=== PATIENT | female | born 1945 | race Caucasian/White ===

== ENCOUNTER 2020-07-20 16:51 | Inpatient (IN) ==
[2020-07-20] MEDS ORDERED: niCARdipine 25 MG in SODIUM CHLORIDE 0.9% 240 ML IV PRN (17:16)
[2020-07-20] MEDS ORDERED: MAGNESIUM SULFATE / D5W 1 GM/100 ML BAG IV ONE (17:21)
--- NOTE | 2020-07-20 17:25 | Emergency Department Note ---
History of Present Illness General Chief complaint: Stroke/CVA Symptoms Stated complaint: MEMORY LOSS Time Seen by Provider: 07/20/20 17:05 Source: patient, family (), RN notes reviewed and old records reviewed Mode of arrival: ambulatory Limitations: altered mental status History of Present Illness Provider complaint: altered mental status Onset (ago): hour(s) less than 1 Associated symptoms: + denies other symptoms; no chest pain, no diaphoresis, no fever/chills, no headaches, no loss of appetite, no malaise, no nausea/vomiting, no seizure, no shortness of breath and no weakness Treatments prior to arrival: none This is a 74-year-old female that presents to the emergency department over concerns of the patient had an acute change in mental status. The patient was just to the emergency department for a nasal packing for a nosebleed. Upon arrival home the patient could not recall where she was or what they had done all day. The patient's then brought the patient back to the emergency department. Upon arrival to the emergency department the patient is pleasant however does appear confused. Home Medications Home Medications Medication Instructions Recorded Confirmed Type allopurinol 200 mg PO QAM 07/20/20 07/20/20 History aspirin 81 mg PO QAM 07/20/20 07/20/20 History cholecalciferol (vitamin D3) 25 mcg PO QAM 07/20/20 07/20/20 History [Vitamin D3] furosemide 10 mg PO QAM 07/20/20 07/20/20 History levothyroxine 112 mcg PO DAILY 07/20/20 07/20/20 History lisinopril 20 mg PO DAILY 07/20/20 07/20/20 History potassium chloride 10 meq PO QAM PRN 07/20/20 07/20/20 History propranolol 80 mg PO QAM 07/20/20 07/20/20 History simvastatin 10 mg PO HS 07/20/20 07/20/20 History amoxicillin-pot clavulanate 1 tab PO Q12H 4 Days #8 tab 07/22/20 07/20/20 Rx [Augmentin] Allergies Allergy/AdvReac Type Severity Reaction Status Date / Time adivl AdvReac Mild hematuria Uncoded 07/20/20 13:58 Past Med/Surg History Medical History CKD (chronic kidney disease), stage III HLD (hyperlipidemia) HTN (hypertension) Hypothyroidism Prediabetes Surgical History H/O thyroidectomy H/O: hysterectomy Family History Other Ovarian cancer Social History Smoking Status: Never smoker Hx Alcohol Use: No Hx Substance Use: No Preferred Language: Swiss Communication Ability: Effective Beliefs That Will Affect Care: None Current Living Situation: Spouse Other Information That Helps Us Care for You: No Feels Safe at Home: Yes Safety Concerns: Feels Safe At This Time Assistive Devices: Glasses Review of Systems A total of 10 systems reviewed and were otherwise negative Physical Exam Vital Signs Vital Signs - 24 hr 07/20/20 16:57 07/20/20 17:49 07/20/20 17:57 Temperature 36.4 C L Temperature Source Oral Pulse Rate 73 74 80 Pulse Rate from SpO2 Sensor 76 Respiratory Rate 18 20 22 Respiratory Effort / Characteristics Non-Labored Spontaneous Respiratory Depth Normal Respiratory Pattern Regular Blood Pressure 204/109 H 198/83 H 190/112 H Blood Pressure Mean 140 120 135 Blood Pressure Position Sitting Pulse Oximetry 95 96 Oxygen Delivery Method Room Air Sepsis Recent Fever Within 48 Hours No Sepsis New/Unexplained Change in Mental Status N/A Sepsis Action Taken by Nursing No Action Required 07/20/20 18:01 07/20/20 18:11 07/20/20 18:39 Temperature Temperature Source Pulse Rate 73 70 84 Pulse Rate from SpO2 Sensor 76 Respiratory Rate 22 25 H 17 Respiratory Effort / Characteristics Respiratory Depth Respiratory Pattern Blood Pressure 200/92 H 189/88 H 178/113 H Blood Pressure Mean 103 106 125 Blood Pressure Position Pulse Oximetry 95 94 Oxygen Delivery Method Sepsis Recent Fever Within 48 Hours Sepsis New/Unexplained Change in Mental Status Sepsis Action Taken by Nursing 07/20/20 18:41 Temperature Temperature Source Pulse Rate 90 Pulse Rate from SpO2 Sensor 75 Respiratory Rate 18 Respiratory Effort / Characteristics Respiratory Depth Respiratory Pattern Blood Pressure 172/86 H Blood Pressure Mean 128 Blood Pressure Position Pulse Oximetry 94 Oxygen Delivery Method Sepsis Recent Fever Within 48 Hours Sepsis New/Unexplained Change in Mental Status Sepsis Action Taken by Nursing VITAL SIGNS - Vital signs and nursing notes were reviewed. GENERAL - 74-year-old female appearing stated age who is in no acute distress. Confused as to date and where she is SKIN - Without rashes. HEAD - NC/AT. EYES - PERRL with EOMI bilaterally. Sclera anicteric. Palpebral conjunctiva pink and moist with no injection noted. EARS - No deformities of external structures noted on gross examination bilaterally. No pain elicited with palpation of the tragus bilaterally. External auditory canals without discharge or otorrhea. Tympanic membranes pearly box without retraction or bulging. No fluid or purulent material visualized behind the TM. Handle of malleus, umbo, cone of light, pars tensa/flaccid all easily visualized. NOSE - Midline and without cyanosis. No epistaxis or purulent drainage noted. Septum midline without deviation or septal hematoma noted. MOUTH/OROPHARYNX - Without perioral cyanosis. Buccal mucosa pink and moist and without leukoplakia. Tongue midline with equal elevation of palate bilaterally. No tonsillar hypertrophy, erythema, or exudates noted. dentition noted. NECK - Neck with FROM. Supple to palpation. lymphadenopathy noted. No nuchal rigidity. LUNGS - Chest wall symmetric without accessory muscle use, intercostals retrac tions, or central cyanosis. Normal vesicular breath sounds CTA B/L. No wheezes, rales, or rhonchi appreciated. CARDIAC - RRR with S1/S2. No murmur, rubs, or gallops appreciated. ABDOMEN - Abdominal contour without pulsations or visible masses. BS normoactive all four quadrants. No tenderness, palpable masses, hepatosplenomegaly, or ascites noted. EXTREMITIES - No clubbing or peripheral cyanosis. No pretibial edema present. +3/5 radial, posterior tibial, and dorsalis pedis pulses palpated throughout. +5/5 strength noted in UE/LE bilaterally. NEUROLOGIC - Cranial nerves II through XII grossly intact. Sensory intact to light touch throughout. Patellar reflexes +2/4. PSYCH - Cooperates fully with examiner. Pt is very pleasant and interacts well with examiner. Course Administered Medications Discontinued Medications Acetaminophen (Acetaminophen 325 Mg Tab) 650 mg PO Q4H PRN PRN Reason: Pain or Fever Stop: 08/19/20 21:24 Last Admin: 07/21/20 16:39 Dose: 650 mg Documented by: [id number] Admin: 07/21/20 08:43 Dose: 650 mg Documented by: [id number] Admin: 07/20/20 22:15 Dose: 650 mg Documented by: [id number] Allopurinol (Allopurinol 100 Mg Tab) 200 mg PO [facility] Stop: 08/20/20 08:59 Last Admin: 07/22/20 08:05 Dose: 200 mg Documented by: [id number] Admin: 07/21/20 08:37 Dose: 200 mg Documented by: [id number] Amoxicillin/Clavulanate Potassium (Amoxicillin/Clavulanate 875 Mg Tab) 1 tab PO Q12H [facility] Stop: 07/31/20 07:59 Last Admin: 07/22/20 08:05 Dose: 1 tab Documented by: [id number] Admin: 07/21/20 20:43 Dose: 1 tab Documented by: [id number] Admin: 07/21/20 08:56 Dose: 1 tab Documented by: [id number] Amoxicillin/Clavulanate Potassium (Amoxicillin/Clavulanate 875 Mg Tab) 1 tab PO ONE ONE Stop: 07/20/20 23:01 Last Admin: 07/20/20 23:24 Dose: 1 tab Documented by: [id number] Furosemide (Furosemide 20 Mg Tab) 10 mg PO [facility] Stop: 08/20/20 08:59 Last Admin: 07/22/20 08:05 Dose: 10 mg Documented by: [id number] Admin: 07/21/20 08:37 Dose: 10 mg Documented by: [id number] Nicardipine HCl 25 mg/ Sodium (Chloride) 250 mls @ 50 mls/hr IV .Q5H PRN; Protocol PRN Reason: SBP above 185 or DBP above 110 Stop: 08/19/20 17:15 Last Titration: 07/20/20 23:39 Dose: 0 mg/hr, 0 mls/hr Documented by: [id number] Admin: 07/20/20 18:11 Dose: 5 mg/hr, 50 mls/hr Documented by: [id number] Cosigned by: [id number] Magnesium Sulfate/Dextrose (Magnesium Sulfate / D5w) 1 gm in 100 mls @ 50 mls/hr IV ONE ONE Stop: 07/20/20 19:20 Last Infusion: 07/20/20 21:56 Dose: 0 mls/hr Documented by: [id number] Admin: 07/20/20 18:19 Dose: 50 mls/hr Documented by: [id number] Lorazepam (Ativan) 1 mg in 2 mls @ 2 mls/min IV NOW STA Stop: 07/20/20 18:50 Last Admin: 07/20/20 19:00 Dose: 2 mls/min Documented by: [id number] Thiamine HCl 500 mg/ Sodium (Chloride) 55 mls @ 208 mls/hr IV NOW STA Stop: 07/21/20 03:59 Last Infusion: 07/21/20 04:24 Dose: 0 mls/hr Documented by: [id number] Admin: 07/21/20 04:01 Dose: 208 mls/hr Documented by: [id number] Ioversol (Optiray 320 125ml) 119 ml IV ONCE ONE Stop: 07/20/20 18:26 Last Admin: 07/20/20 18:25 Dose: 119 ml Documented by: [id number] Levothyroxine Sodium (Levothyroxine Sodium 112 Mcg Tablet) 112 mcg PO DAILYBB TERELL Stop: 08/20/20 06:29 Last Admin: 07/22/20 06:17 Dose: 112 mcg Documented by: [id number] Admin: 07/21/20 05:53 Dose: Not Given Documented by: [id number] Lisinopril (Lisinopril 20 Mg Tab) 20 mg PO DAILY TERELL Stop: 08/20/20 08:59 Last Admin: 07/22/20 08:05 Dose: 20 mg Documented by: [id number] Admin: 07/21/20 08:38 Dose: 20 mg Documented by: [id number] Potassium Chloride (Potassium Chloride 20 Meq Tabcr) 20 meq PO NOW STA Stop: 07/21/20 07:39 Last Admin: 07/21/20 08:56 Dose: 20 meq Documented by: [id number] Propranolol HCl (Propranolol Hcl La 80 Mg Capcr) 80 mg PO QAM TERELL Stop: 08/20/20 08:59 Last Admin: 07/22/20 08:05 Dose: 80 mg Documented by: [id number] Admin: 07/21/20 08:37 Dose: 80 mg Documented by: [id number] Simvastatin (Simvastatin 10 Mg Tab) 10 mg PO HS TERELL Stop: 08/19/20 20:59 Last Admin: 07/21/20 20:43 Dose: 10 mg Documented by: [id number] Admin: 07/20/20 22:15 Dose: 10 mg Documented by: [id number] Vitamin D (Cholecalciferol 1,000 Units 25 Mcg Tab) 1,000 units PO QAM TERELL Stop: 08/20/20 08:59 Last Admin: 07/22/20 08:05 Dose: 1,000 units Documented by: [id number] Admin: 07/21/20 08:37 Dose: 1,000 units Documented by: [id number] Critical Care Time I have personally spent greater than 30 minutes of critical care time in the direct management of this patient. This includes bedside care, interpretation of diagnostic studies, and testing, discussion with consultants, patient, and family members, and other required patient management activities. This 30 minutes is in excess of all separately billable procedures. Medical Decision Making Differential Diagnosis Infection, dehydration, metabolic abnormality, hypo/hyperglycemia, electrolyte disturbance, anemia, hypoxia, cardiac sources, intracerebral event, toxicologic, neurologic, as well as other pathologies. Medical Records Attestation: I reviewed the patient's medical records. Home Medications Current Medication List: was personally reviewed by me Laboratory Data Attestation: I reviewed the patient's lab results. Result diagrams: 07/22/20 05:29 07/22/20 05:29 Lab Results 07/20/20 07/20/20 Range/Units 17:50 18:09 POC Hgb 15.6 (12.0-16.0) g/dl POC Hct 46 (37-47) % POC Sodium 141 (135-144) mmol/L POC Potassium 3.9 (3.3-5.0) mmol/L POC Chloride 105 (101-112) mmol/L POC Total CO2 26 (24-31) mmol/L POC Anion Gap 15.0 L (16-25) mmol/L POC BUN 16 (7-18) mg/dl POC Creatinine 1.4 H (0.6-1.3) mg/dl POC Glucose 127 H (70-99) mg/dl POC Glucose (other) 123 H (70-99) mg/dl POC Ioniz Calcium Wayne 1.20 (1.12-1.32) mmol/l Imaging Data Radiologist's Impression: [facility], [place] [phone] CT Scan Report Patient: SATISH HERNANDEZ Admit Date: 07/20/20 MR#: [id number] Address1: [facility] [address]RE[address] KATZ Acct ID:[id number] Address2: Date: 1945 [facility] Zip: [place] [address] Age: 74 Location: ED Sex: F Room/Bed: Att Phy: Diagnosis: MEMORY LOSS Analy Phy: Piper Arnold MD Service Date: 07/20/20 [facility] Phy: Interpreting Phy: Clayton Samson MD Admit Phy: Ordering Phy: Melo Arevalo MD cc: ~ CT ANGIOGRAM OF THE BRAIN; CT ANGIOGRAM OF THE NECK CLINICAL HISTORY: Strokelike symptoms. COMPARISON STUDY: Unenhanced CT of the brain performed the same day 07/20/2020. TECHNIQUE: Following the IV administration of 119 of Optiray 320, CT angiogram of the head and neck was performed from the aortic arch to the vertex. Images are reviewed in the axial, sagittal, and coronal planes. 3-D MIPS images are created and assessed. IV contrast was administered without complication. All measurements were calculated based on NASCET criteria. A dose lowering technique was utilized adhering to the principles of ALARA. CT DOSE: 740.81 mGy.cm FINDINGS: Brain parenchyma: The brain parenchyma is normal in appearance. There is no hemorrhage, mass effect, or evidence of acute territorial ischemia by CT criteria. There is no evidence of enhancing mass lesion on the angiogram phase images. The ventricles, sulci, and cisterns are normal in configuration. Box- white matter differentiation is preserved. No extra-axial fluid collection is seen. Thoracic aorta: There is mild atherosclerotic calcification of the thoracic aorta. Visualized portions of the thoracic aorta are normal in caliber. The aortic arch demonstrates standard 3-vessel anatomy. Right carotid arterial system: The right common carotid artery is widely patent, as are the right internal and external carotid arteries. Mild calcified plaque is seen in the carotid bulb. Left carotid arterial system: The left common carotid artery is widely patent, as are the left internal and external carotid arteries. Vertebral arteries: The vertebral arteries are widely patent bilaterally and codominant. Subclavian arteries: Widely patent bilaterally. Intracranial vasculature: The [place] is developmentally complete. The internal carotid arteries are patent at the skull base, as are the anterior and middle cerebral arteries bilaterally. The vertebrobasilar system and posterior cerebral arteries are widely patent. The vertebral arteries are codominant. Focal fenestration of the left vertebral artery is incidentally noted on image #32. There is no aneurysm, high-grade stenosis, or focal vessel cut off seen throughout the intracranial circulation. Jugular veins: Patent bilaterally. Dural sinuses: Patent. Lung apices: Partially visualized upper lobe lung parenchyma appears clear. Soft tissues: The visualized pharyngeal soft tissues are normal in appearance noting angiographic phase technique. The oropharyngeal airway appears widely patent. The thyroid gland is surgically absent. The salivary glands are normal in appearance. There are large calcified tonsilliths. No cervical lymphadenopathy is seen. Skeletal structures: The skeletal structures are osteopenic. The calvarium appears intact. The cervical spine is within normal limits. No lytic or blastic lesion is seen. Orbits: The bony orbits are intact. Orbital contents are normal as imaged. Sinuses and mastoids: There is an air-fluid level in the left maxillary antrum. The remaining paranasal sinuses are clear. The mastoid air cells are well pneumatized. IMPRESSION: 1. There is no hemorrhage, mass effect, or evidence of acute territorial ischemia by CT criteria noting angiographic phase technique. 2. Unremarkable CT angiogram of the brain. 3. Unremarkable CT angiogram of the neck. ACT 112: Negative or not required by law. Electronically signed by: Clayton Samson M.D. 07/20/2020 6:46 PM Dictated: 07/20/201838 Transcribed: 07/20/201838 [place], [place] [phone] CT Scan Report Patient: SATISH HERNANDEZ Admit Date: 07/20/20 MR#: [id number] Address1: [address] [place] [address] Acct ID:[id number] Address2: Date: 1945 [facility] Zip: [place] [address] Age: 74 Location: ED Sex: F Room/Bed: Att Phy: Diagnosis: MEMORY LOSS Analy Phy: Piper Arnold MD Service Date: 07/20/20 Fam Phy: Interpreting Phy: Clayton Samson MD Admit Phy: Ordering Phy: Melo Arevalo MD cc: ~ CT SCAN OF THE BRAIN WITHOUT IV CONTRAST CLINICAL HISTORY: Strokelike symptoms. COMPARISON STUDY: No priors. TECHNIQUE: Unenhanced axial CT scan of the brain is performed from the vertex to the skull base. A dose lowering technique was utilized adhering to the principles of ALARA. CT DOSE: 614.27 mGy.cm FINDINGS: Brain parenchyma: The brain parenchyma is normal in appearance. There is no hemorrhage, mass effect, or evidence of acute territorial ischemia by CT criteria. Box-white matter differentiation is preserved. No extra-axial fluid collection is seen. Ventricles, sulci, cisterns: Normal in configuration. Intracranial vasculature: There is mild atherosclerotic calcification of the cavernous carotid arteries. Calvarium: Unremarkable. Sinuses and mastoids: There is an air-fluid level in the left maxillary antrum. The remaining paranasal sinuses are clear. The mastoid air cells are well p neumatized. Orbits: The bony orbits are grossly intact. IMPRESSION: There is no hemorrhage, mass effect, or evidence of acute territorial ischemia by CT criteria. ACT 112: Negative or not required by law. Electronically signed by: Clayton Samson M.D. 07/20/2020 5:45 PM Dictated: 07/20/201734 Transcribed: 07/20/201734 ECG Data Attestation: I personally reviewed and interpreted this ECG as follows: Indication: + altered mental status Rate (beats per minute): 72 Rhythm: + normal sinus ECG [place]: + Normal ECG ST segments: no ST depression and no ST elevation Comparison ECG Date: no prior available MDM Narrative Patient was seen and evaluated as above in room A2. Review was performed of nursing notes and vital signs. I did review pertinent previous visits and patient history. After obtaining a thorough history and physical examination the above work up was performed. Due to the acute presentation stroke alert was initiated. Patient was found to be hypertensive and placed on a nicardipine drip. She was immediately sent to the CAT scan I did discuss her case with the stroke neurologist at [place] who asked that the patient be admitted. We do not feel the patient is a TPA candidate as she has no gross deficits. Patient and are in agreement with the treatment plan. An order was placed for continuous cardiac monitoring. The monitor shows a rate of 70 with Normal Sinus rhythm. The patient was evaluated during the global COVID-19 pandemic, and that diagnosis was suspected/considered upon their initial presentation. Their evaluation, treatment and testing was consistent with current guidelines for patients who present with complaints or symptoms that may be related to COVID- 19. Impression & Plan Acute anterior epistaxis, Transient global amnesia, HTN (hypertension) Discharge Plan Visit Data Chief Complaint: Stroke/CVA Symptoms Stated Complaint: MEMORY LOSS ED Provider: Melo Arevalo Discharge Problem: Acute anterior epistaxis, Transient global amnesia, HTN (hypertension) Patient Disposition: Admitted As Inpatient Discharge Instructions Interventions: ED Discharge Assessment Last Done: 07/20/20 21:00 Discharge Problem: HTN (hypertension) Qualifiers: Hypertension type: unspecified Qualified Code(s): I10 - Essential (primary) hypertension
--- NOTE | 2020-07-20 17:47 | CT Scan Report ---
CT SCAN OF THE BRAIN WITHOUT IV CONTRAST CLINICAL HISTORY: Strokelike symptoms. COMPARISON STUDY: No priors. TECHNIQUE: Unenhanced axial CT scan of the brain is performed from the vertex to the skull base. A d ose lowering technique was utilized adhering to the principles of ALARA. CT DOSE: 614.27 mGy.cm FINDINGS: Brain parenchyma: The brain parenchyma is normal in appearance. There is no hemorrhage, mass effect, or evidence of acute territorial ischemia by CT criteria. Box-white matter differentiation is preser melinda. No extra-axial fluid collection is seen. Ventricles, sulci, cisterns: Normal in configuration. Intracranial vasculature: There is mild atherosclerotic calcification of the cavernous carotid arteri es. Calvarium: Unremarkable. Sinuses and mastoids: There is an air-fluid level in the left maxillary antrum. The remaining paranas al sinuses are clear. The mastoid air cells are well pneumatized. Orbits: The bony orbits are grossly intact. IMPRESSION: There is no hemorrhage, mass effect, or evidence of acute territorial ischemia by CT reece jeong. ACT 112: Negative or not required by law. Electronically signed by: Clayton Samson M.D. 07/20/2020 5:45 PM
[2020-07-20 18:12] LABS: Basophils # (auto) 0.04 K/uL (0-0.2); Basophils % (auto) 0.4 %; Hematocrit (blood only) 45.8 % (37-47); Hemoglobin 15.8 g/dL (12.0-16.0); Immature Granulocytes # (auto) 0.04 K/uL (0.00-0.02); Immature Granulocytes % (auto) 0.4 %; Lymphocytes # (auto) 1.28 K/uL (1.2-3.4); Mean Corpuscular Hemoglobin 31.6 pg (25-34); Mean Corpuscular Hgb Conc 34.5 g/dL (32-36); Mean Corpuscular Volume 91.6 fL (80-100); Mean Platelet Volume 9.7 fL (7.4-10.4); Monocytes # (auto) 0.36 K/uL (0.11-0.59); Monocytes % (auto) 3.6 %; Neutrophils # (auto) 7.96 K/uL (1.4-6.5); Neutrophils % (auto) 80.6 %; Platelet Count 246 K/uL (130-400); RDW Coefficient of Variation 13.6 % (11.5-14.5); RDW Standard Deviation 44.6 fL (36.4-46.3); White Blood Count 9.88 K/uL (4.8-10.8)
[2020-07-20 18:21] LABS: iSTAT Creatinine 1.4 mg/dl (0.6-1.3); iSTAT Hemoglobin 15.6 g/dl (12.0-16.0); iSTAT Ionized Calcium 1.2 mmol/l (1.12-1.32); iSTAT Potassium 3.9 mmol/L (3.3-5.0)
[2020-07-20 18:23] LABS: Partial Thromboplastin Time 27.9 Seconds (21.0-31.0)
[2020-07-20] MEDS ORDERED: OPTIRAY 320 125ml IV ONE (18:25)
[2020-07-20 18:34] LABS: Albumin Level 3.9 gm/dl (3.4-5.0); BUN Creatinine Ratio 10.3 (10-20); Calcium 9.3 mg/dl (8.5-10.1); Creatinine Clr Calc Pharmacy 44.8 ml/min; Est GFR (Non-African American) 34.5; Magnesium 2.4 mg/dl (1.8-2.4); Potassium 3.9 mmol/L (3.5-5.1)
[2020-07-20 18:42] LABS: Albumin Globulin Ratio 1.1 (0.9-2); Bilirubin,Total 0.7 mg/dl (0.2-1); Globulin 3.4 gm/dl (2.5-4.0); Total Protein 7.3 gm/dl (6.4-8.2); Troponin I 0.081 ng/ml (0-0.045)
--- NOTE | 2020-07-20 18:47 | CT Scan Report ---
CT ANGIOGRAM OF THE BRAIN; CT ANGIOGRAM OF THE NECK CLINICAL HISTORY: Strokelike symptoms. COMPARISON STUDY: Unenhanced CT of the brain performed the same day 07/20/2020. TECHNIQUE: Following the IV administration of 119 of Optiray 320, CT angiogram of the head and neck w as performed from the aortic arch to the vertex. Images are reviewed in the axial, sagittal, and corina nal planes. 3-D MIPS images are created and assessed. IV contrast was administered without complicati on. All measurements were calculated based on NASCET criteria. A dose lowering technique was utilize d adhering to the principles of ALARA. CT DOSE: 740.81 mGy.cm FINDINGS: Brain parenchyma: The brain parenchyma is normal in appearance. There is no hemorrhage, mass effect, or evidence of acute territorial ischemia by CT criteria. There is no evidence of enhancing mass lesi on on the angiogram phase images. The ventricles, sulci, and cisterns are normal in configuration. Gr ay-white matter differentiation is preserved. No extra-axial fluid collection is seen. Thoracic aorta: There is mild atherosclerotic calcification of the thoracic aorta. Visualized portion s of the thoracic aorta are normal in caliber. The aortic arch demonstrates standard 3-vessel anatomy . Right carotid arterial system: The right common carotid artery is widely patent, as are the right int ernal and external carotid arteries. Mild calcified plaque is seen in the carotid bulb. Left carotid arterial system: The left common carotid artery is widely patent, as are the left internal medicine physician assistant al and external carotid arteries. Vertebral arteries: The vertebral arteries are widely patent bilaterally and codominant. Subclavian arteries: Widely patent bilaterally. Intracranial vasculature: The [place] is developmentally complete. The internal carotid [place] are patent at the skull base, as are the anterior and middle cerebral arteries bilaterally. The vertebrobasilar system and posterior cerebral arteries are widely patent. The vertebral arteries are codominant. Focal fenestration of the left vertebral artery is incidentally noted on image #32. There is no aneurysm, high-grade stenosis, or focal vessel cut off seen throughout the intracranial circul ation. Jugular veins: Patent bilaterally. Dural sinuses: Patent. Lung apices: Partially visualized upper lobe lung parenchyma appears clear. Soft tissues: The visualized pharyngeal soft tissues are normal in appearance noting angiographic pha se technique. The oropharyngeal airway appears widely patent. The thyroid gland is surgically absent. The salivary glands are normal in appearance. There are large calcified tonsilliths. No cervical lym phadenopathy is seen. Skeletal structures: The skeletal structures are osteopenic. The calvarium appears intact. The cervic al spine is within normal limits. No lytic or blastic lesion is seen. Orbits: The bony orbits are intact. Orbital contents are normal as imaged. Sinuses and mastoids: There is an air-fluid level in the left maxillary antrum. The remaining paranas al sinuses are clear. The mastoid air cells are well pneumatized. IMPRESSION: 1. There is no hemorrhage, mass effect, or evidence of acute territorial ischemia by CT criteria noti ng angiographic phase technique. 2. Unremarkable CT angiogram of the brain. 3. Unremarkable CT angiogram of the neck. ACT 112: Negative or not required by law. Electronically signed by: Clayton Samson M.D. 07/20/2020 6:46 PM
[2020-07-20] MEDS ORDERED: LORazepam 1 MG/2 ML VIAL IV STA (18:49)
--- NOTE | 2020-07-20 20:09 | Magnetic Resonance Report ---
MRI OF THE BRAIN WITHOUT IV CONTRAST CLINICAL HISTORY: Change in mental status. COMPARISON STUDY: CT of the brain performed the same day 07/20/2020. TECHNIQUE: MRI of the brain was performed utilizing various T1 and T2-weighted sequences in the axial , sagittal, and coronal planes. IV contrast was not administered for this examination. The examinatio n is degraded by motion artifact. FINDINGS: Brain parenchyma: There is minimal microangiopathic change. The brain parenchyma is otherwise normal in appearance. There is no hemorrhage or mass effect. There is no restricted diffusion to suggest acu te ischemia. Box-white matter differentiation is preserved. No extra-axial fluid collection is seen. The cerebellar tonsils are normal in configuration. Ventricles, sulci, and cisterns: Normal in configuration. Pituitary and sella: Unremarkable. Intracranial vasculature: Normal flow voids are maintained at the skull base. Orbits: The bony orbits are grossly intact. Orbital contents are normal in appearance. Sinuses and mastoids: There is no air-fluid level in the left maxillary antrum. The remaining paranas al sinuses are clear. The mastoid air cells are well pneumatized. Calvarium: Unremarkable. Cervical cord: Partially visualized cervical spinal cord is normal in morphology and signal intensity . IMPRESSION: No acute intracranial abnormality is identified noting a motion degraded examination. ACT 112: Negative or not required by law. Electronically signed by: Clayton Samson M.D. 07/20/2020 8:08 PM
--- NOTE | 2020-07-20 20:24 | History & Physical Report ---
Date of Service July 20, 2020 History of Present Illness Primary Care Provider: Piper Arnold MD Allergies Allergy/AdvReac Type Severity Reaction Status Date / Time adivl AdvReac Mild hematuria Uncoded 07/20/20 13:58 Home Medications Home Medications Medication Instructions Recorded Confirmed Type allopurinol 200 mg PO QAM 07/20/20 07/20/20 History aspirin [Aspir-Low] 81 mg PO QAM 07/20/20 07/20/20 History cholecalciferol (vitamin D3) 25 mcg PO QAM 07/20/20 07/20/20 History [Vitamin D3] furosemide 10 mg PO QAM 07/20/20 07/20/20 History levothyroxine 112 mcg PO DAILY 07/20/20 07/20/20 History lisinopril 20 mg PO DAILY 07/20/20 07/20/20 History potassium chloride 10 meq PO QAM PRN 07/20/20 07/20/20 History propranolol 80 mg PO QAM 07/20/20 07/20/20 History simvastatin 10 mg PO HS 07/20/20 07/20/20 History Past Med/Surg History Social History Smoking Status: Never smoker Feels Safe at Home: Yes Results & Data Results & Data ([facility]) Vital Signs (Past 12 Hours) Vital Signs Temp Pulse Resp BP Pulse Ox 07/20/20 20:09 76 20 142/74 H 94 07/20/20 19:01 75 22 141/82 H 94 07/20/20 18:51 72 21 159/78 H 93 07/20/20 18:41 90 18 172/86 H 94 07/20/20 18:39 84 17 178/113 H 94 07/20/20 18:11 70 25 H 189/88 H 95 07/20/20 18:01 73 22 200/92 H 07/20/20 17:57 80 22 190/112 H 07/20/20 17:49 74 20 198/83 H 96 07/20/20 16:57 36.4 C L 73 18 204/109 H 95
--- NOTE | 2020-07-20 20:29 | XRay Report ---
SINGLE VIEW CHEST CLINICAL HISTORY: Change in mental status. FINDINGS: An AP, portable, upright chest radiograph is obtained. No prior studies are available for c omparison at the time of dictation. The cardiomediastinal silhouette is unremarkable. There is mild bibasilar atelectasis. The lungs and pleural spaces are otherwise clear. No pneumothorax is seen. The skeletal structures are osteopenic. The bony thorax is grossly intact. IMPRESSION: No active disease in the chest. ACT 112: Negative or not required by law. Electronically signed by: Clayton Samson M.D. 07/20/2020 8:27 PM
[2020-07-20] MEDS ORDERED: POTASSIUM CHLORIDE 10 MEQ TABCR PO PRN (20:33)
[2020-07-20] MEDS ORDERED: POLYETHYLENE (MIRALAX) 17 GM PACK PO PRN (21:25)
[2020-07-20] MEDS ORDERED: ONDANSETRON INJ 2 MG/ML 2 ML VIAL IV PRN (21:25)
[2020-07-20] MEDS ORDERED: LABETALOL HCL IV 5 MG/ML 20ML IV PRN (21:25)
[2020-07-20] MEDS ORDERED: PHARMACIST DISCHARGE MED REC CONSULT PRN (21:25)
[2020-07-20] MEDS: ACETAMINOPHEN 325 MG TAB PO PRN (22:15)
[2020-07-20] MEDS: SIMVASTATIN 10 MG TAB PO SCH (22:15)
[2020-07-20] MEDS ORDERED: AMOXICILLIN/CLAVULANATE 875 MG TAB PO ONE (23:00)
--- NOTE | 2020-07-20 23:07 | History and Physical Report ---
DATE OF ADMISSION: 07/20/2020 CHIEF COMPLAINT: Amnesia. HISTORY OF PRESENT ILLNESS: This 74-year-old female with past medical history significant for hyperlipidemia, hypothyroidism, prediabetes, hyperparathyroidism, pulmonary nodules, hypertension, morbid obesity, chronic kidney disease stage III, osteoarthritis, lymphedema of both lower extremities, history of thyroidectomy. The patient lives with her . The patient was seen here in the morning in the hospital with a left nosebleed. She has a nose pack, Rhino pack done by the ER physician and was discharged back home. The bleeding has stopped, the took her home, when she was at home she could not remember anything that she was in the ER for nosebleed. She can recognize her , but she did not know the date. She seemed confused, was worried about a stroke and he brought the patient back to the hospital. The patient has stroke workup with CTA of the head and neck and also brain MRI, which are unremarkable. The patient is currently alert and awake, oriented to name and place, but somewhat difficulty with dates, could subtract 100 from 7 only one time, able to recognize her . Speech is clear. No facial droop. Otherwise, insight is okay. She could able to answer all the questions. The only thing she does not remember is what happened today. Currently has some headache. No blurred visions. No earache, has some stuffy nose, no sore throat, no cough, no chest pain, no shortness of breath, no nausea, no vomiting, no abdominal pain. Normal bowel and bladder movements. Has chronic edema in lower extremities. She takes Lasix once daily and if she takes extra Lasix she takes it with potassium supplement. Currently afebrile. Blood pressure when she came in was high like 220/120 and patient says whenever she gets nervous and anxious her blood pressure goes high and today she was anxious with all this these things happening .. She says she usually checks her blood pressures at home, but recently they did not checked it. In the ER, she was started on nicardipine drip and blood pressure came into 170s, and currently 140/74. ALLERGIES: ADVIL. PAST MEDICAL HISTORY: As mentioned above. PAST SURGICAL HISTORY: Dilatation and curettage, diagnostic laparoscopy, thyroidectomy, total hysterectomy. MEDICATIONS: The patient is on allopurinol 200 mg p.o. a.m., Augmentin 1 tablet p.o. q. 12 hours, aspirin 81 mg p.o. a.m., vitamin D 25 mcg p.o. daily, Lasix 10 mg p.o. a.m., levothyroxine 112 mcg p.o. daily, lisinopril 20 mg p.o. daily, potassium chloride 10 mEq p.o. a.m. p.r.n., propranolol 80 mg p.o. a.m., simvastatin 10 mg p.o. at bedtime. FAMILY HISTORY: Significant for mother had cancer. Father has dementia. SOCIAL HISTORY: , lives with her . No smoking, alcohol rarely. No drug use. REVIEW OF SYMPTOMS: As per HPI. Rest of review of symptoms negative. PHYSICAL EXAMINATION: GENERAL: The patient is obese, not in acute distress. VITAL SIGNS: Temperature 36.4, pulse 76, respiratory rate 20, blood pressure when she came was like 220/120, currently 140/74, oxygen 94% on room air. HEENT: Pupils equal, round, and reactive to light. Oral mucosa moist. Nose, left Rhino nose packing was seen. . NECK: Supple. No neck masses seen. CARDIOVASCULAR: S1, S2 heard, regular rate and rhythm, no murmur, no gallop. RESPIRATORY SYSTEM: Normal AP diameter. No accessory muscle use. No wheezing, no crackles. ABDOMEN: Soft, bowel sounds present, nontender. No distention. CENTRAL NERVOUS SYSTEM: Alert and oriented x2. Speech clear. No facial droop. Power is 5/5 in all extremities. Sensation is intact, position sense intact. Coordination of movements normal. No pronator drift. able lift her lower extremity and hold for a few seconds. EXTREMITIES: Bilateral lower extremity edema present, no erythema seen. LABORATORY DATA: WBC is 9.8, hemoglobin 15.8, hematocrit 45.8, platelets 246. PT 11, INR 1, APTT 27.9. Sodium 142, potassium 3.9, chloride 109, bicarbonate 28, BUN 15, creatinine 1.48, serum glucose 122, calcium 9.3, magnesium 2.4, total bilirubin 0.7, AST 15, ALT 21, alkaline phosphatase 59, troponin I 0.08. Chest x-ray, no active disease in the chest. CT of the head, no acute findings. CT of the head and neck, no acute findings. Brain MRI, no acute findings. EKG: Normal sinus rhythm, rate of 72, no acute ST changes seen. ASSESSMENT AND PLAN: This 74-year-old female who came to the ER in the morning with a nosebleed, went home and was confused, is not remembering what happened and came back to the hospital and was found to be hypertensive, blood pressure was elevated and workup is negative so far. 1. Confusion, probably transient global amnesia, could not remember today's events properly, still foggy. Imaging studies, stroke workup negative so far. When she came in, blood pressure was high. It is under control with nicardipine drip. Also we will give her high dose IV thiamine 500 mg and we will also do EEG. We will do full stroke workup with echo, PT/OT and neuro consult in a.m. and closely monitor in the tele floor. We will hold aspirin for now as patient has significant nosebleed in the morning. Continue statin. Follow lipid profile. 2. Hypertensive urgency/emergency. Her confusion could be also from elevated blood pressure. Currently under control with nicardipine drip. Continue her home lisinopril and propranolol. We will start on nicardipine drip and IV labetalol p.r.n., and closely monitor in the tele floor. If needed, we will consult cardiology. 3. Epistaxis, has a Rhino pack in the left nostril. Currently under control. Hold aspirin. Augmentin prescribed by the ER. 4. History of prediabetes, follow diabetic diet. Follow the HbA1c levels. 5. Hypothyroidism, post-surgical. Continue Synthroid. 6. Hyperlipidemia. Continue statin. Follow lipid profile. 7. Morbid obesity, needs counseling. 8. Lymphedema in both legs. Continue home Lasix. We will monitor. 9. Chronic kidney disease stage III, baseline creatinine around 1.6 current creatinine of 1.4. We will follow the labs in a.m. 10. Mild elevation of troponin, could be demand ischemia. We will follow the serial enzymes and also echocardiogram. 11. Deep venous thrombosis prophylaxis, sequential compression devices. DISPOSITION: Admit to tele floor. Expect to discharge home and follow with family doctor. PT and OT prior to discharge. Social service to help with discharge planning. NURIA
[2020-07-21] MEDS ORDERED: THIAMINE HCL 500 MG in SODIUM CHLORIDE 0.9% 50 ML IV STA (03:44)
[2020-07-21] MEDS: LEVOTHYROXINE SODIUM 112 MCG TABLET PO SCH (05:53)
[2020-07-21 06:37] LABS: Hematocrit (blood only) 43.2 % (37-47); Hemoglobin 14.7 g/dL (12.0-16.0); Mean Corpuscular Hemoglobin 31.3 pg (25-34); Mean Corpuscular Volume 91.9 fL (80-100); Mean Platelet Volume 9.6 fL (7.4-10.4); Platelet Count 223 K/uL (130-400); RDW Coefficient of Variation 13.6 % (11.5-14.5); RDW Standard Deviation 45.5 fL (36.4-46.3); White Blood Count 10.19 K/uL (4.8-10.8)
[2020-07-21 07:06] LABS: BUN Creatinine Ratio 10.8 (10-20); Calcium 9.1 mg/dl (8.5-10.1); Creatinine Clr Calc Pharmacy 50.3 ml/min; Est GFR (African American) 46.4; Potassium 3.5 mmol/L (3.5-5.1)
--- NOTE | 2020-07-21 07:35 | Hospitalist Progress Note ---
Date of Service July 21, 2020 Assessment & Plan (1) Transient global amnesia: 74 y/o F who came to the ER in the morning with a nosebleed, went home and was confused, is not remembering what happened and came back to the hospital and was found to be hypertensive, blood pressure was elevated and workup is negative so far. 1. Confusion, probably transient global amnesia, could not remember today's events properly. Imaging studies, stroke workup negative so far. CT head, CTA head, neck, MRI brain - negative for stroke or any acute event When she came in, blood pressure was high. Then under control with nicardipine drip. Started high dose IV thiamine 500 mg EEG - unremarkable Full stroke workup with echo, PT/OT and neuro consult in a.m., closely monitor in the tele floor. Tele reviewed - pt in sinus rhythm Hold aspirin for now as patient has significant nosebleed in the morning. Continue statin. Follow lipid profile. 2. Hypertensive urgency/emergency. Her confusion could be also from elevated blood pressure. Under control with nicardipine drip. Continue her home lisinopril and propranolol. We will start on nicardipine drip and IV labetalol p.r.n., and closely monitor in the tele floor. If needed, we will consult cardiology. 3. Epistaxis, has a Rhino pack in the left nostril. Currently under control. Hold aspirin. Augmentin prescribed by the ER. Pt has appointment scheduled with Dr. Rodriguez, ENT, for Sunday - recommended to cont. packing and Augmentin until then 4. History of prediabetes, follow diabetic diet. Follow the HbA1c levels. 5. Hypothyroidism, post-surgical. Continue Synthroid. 6. Hyperlipidemia. Continue statin. Follow lipid profile. 7. Morbid obesity, needs counseling. 8. Lymphedema in both legs. Continue home Lasix. We will monitor. 9. Chronic kidney disease stage III, baseline creatinine around 1.6 current creatinine of 1.4. 10. Mild elevation of troponin, demand ischemia in the setting of CKD. Echocardiogram unremarkable. DVT prophylaxis: SCDs Admission and Anticipated Discharge Date Admission Date: July 20, 2020 Subjective Patient is lying in bed, in no acute distress. Denies any fevers, chills, chest pain, shortness of breath, headache, dizziness. She still cannot remember the full events yesterday however she says that pieces are coming back to her. Discussed that MRI, CTA, EEG so far negative, also echocardiogram unremarkable. Neurology evaluation pending. Review of Systems Review of Systems: All systems reviewed & are unremarkable except as noted in HPI & below Constitutional: no fever and no chills Respiratory: no cough and no dyspnea Cardiovascular: no chest pain and no palpitations Gastrointestinal: no abdominal pain, no nausea and no vomiting Physical Exam Physical Exam: GENERAL: obese female laying in bed, not in acute distress HEENT: Pupils equal, round, and reactive to light. Oral mucosa moist. Nose: left Rhino nose packing present NECK: Supple. No neck masses seen. CARDIOVASCULAR: S1, S2 heard, regular rate and rhythm, no murmur, no gallop. RESPIRATORY SYSTEM: Normal AP diameter. No accessory muscle use. No wheezing, no crackles. ABDOMEN: Soft, bowel sounds present, nontender. No distention. CENTRAL NERVOUS SYSTEM: Alert and oriented x2. Speech clear. No facial droop. Power is 5/5 in all extremities. Sensation is intact, position sense intact. Coordination of movements normal. No pronator drift. able lift her lower extremity and hold for a few seconds. EXTREMITIES: Bilateral lower extremity edema present, no erythema seen SKIN: warm, dry Results & Data Results & Data ([facility]) Vital Signs (Past 12 Hours) Vital Signs Temp Pulse Pulse Resp BP BP Pulse Ox 07/21/20 04:22 36.4 C L 74 18 174/79 H 92 07/21/20 03:06 68 07/21/20 00:27 36.3 C L 72 18 182/84 H 94 07/20/20 21:25 38.4 C H 79 18 153/82 H 92 07/20/20 20:09 76 20 142/74 H 94 Laboratory Results 07/21/20 07/21/20 07/21/20 Range/Units 06:18 06:18 06:18 WBC 10.19 (4.8-10.8) K/uL RBC 4.70 (4.2-5.4) M/uL Hgb 14.7 (12.0-16.0) g/dL POC Hgb (12.0-16.0) g/dl Hct 43.2 (37-47) % POC Hct (37-47) % MCV 91.9 (80-100) fL MCH 31.3 (25-34) pg MCHC 34.0 (32-36) g/dL RDW Std Deviation 45.5 (36.4-46.3) fL RDW Coeff of Deb 13.6 (11.5-14.5) % Plt Count 223 (130-400) K/uL MPV 9.6 (7.4-10.4) fL Immature Gran % (Auto) % Neut % (Auto) % Lymph % (Auto) % [place] % (Auto) % Eos % (Auto) % Baso % (Auto) % Neut # (Auto) (1.4-6.5) K/uL Lymph # (Auto) (1.2-3.4) K/uL [place] # (Auto) (0.11-0.59) K/uL Eos # (Auto) (0-0.5) K/uL Baso # (Auto) (0-0.2) K/uL Immature Gran # (Auto) (0.00-0.02) K/uL PT (9.0-12.0) Seconds INR (0.9-1.1) APTT (21.0-31.0) Seconds PTT Ratio POC Sodium (135-144) mmol/L Sodium 142 (136-145) mmol/L POC Potassium (3.3-5.0) mmol/L Potassium 3.5 (3.5-5.1) mmol/L POC Chloride (101-112) mmol/L Chloride 108 H (98-107) mmol/L Carbon Dioxide 29 (21-32) mmol/L POC Total CO2 (24-31) mmol/L Anion Gap 5.0 (3-11) POC Anion Gap (16-25) mmol/L POC BUN (7-18) mg/dl BUN 14 (7-18) mg/dl Creatinine 1.31 H (0.6-1.2) mg/dl POC Creatinine (0.6-1.3) mg/dl Est Cr Clr Drug Dosing 50.3 ml/min Est GFR ( Amer) 46.4 Est GFR (Non-Af Amer) 40.0 BUN/Creatinine Ratio 10.8 (10-20) Glucose 100 H (70-99) mg/dl POC Glucose (70-99) mg/dl POC Glucose (other) (70-99) mg/dl Estimat Average Glucose Pending Hemoglobin A1c Pending Calcium 9.1 (8.5-10.1) mg/dl POC Ioniz Calcium [place] (1.12-1.32) mmol/l Magnesium (1.8-2.4) mg/dl Total Bilirubin (0.2-1) mg/dl AST (15-37) U/L ALT (12-78) U/L Alkaline Phosphatase (45-117) U/L Troponin I (0-0.045) ng/ml Total Protein (6.4-8.2) gm/dl Albumin (3.4-5.0) gm/dl Globulin (2.5-4.0) gm/dl Albumin/Globulin Ratio (0.9-2) Triglycerides 72 (0-150) mg/dl Cholesterol 118 (0-200) mg/dl LDL Cholesterol, Calc 40 mg/dl VLDL Cholesterol, Calc 14 mg/dl HDL Cholesterol 64 mg/dl Cholesterol/HDL Ratio 2 Hepatitis C Ab Screen (Neg) 07/20/20 07/20/20 07/20/20 Range/Units Unknown Unknown Unknown WBC (4.8-10.8) K/uL RBC (4.2-5.4) M/uL Hgb (12.0-16.0) g/dL POC Hgb (12.0-16.0) g/dl Hct (37-47) % POC Hct (37-47) % MCV (80-100) fL MCH (25-34) pg MCHC (32-36) g/dL RDW Std Deviation (36.4-46.3) fL RDW Coeff of Deb (11.5-14.5) % Plt Count (130-400) K/uL MPV (7.4-10.4) fL Immature Gran % (Auto) % Neut % (Auto) % Lymph % (Auto) % [place] % (Auto) % Eos % (Auto) % Baso % (Auto) % Neut # (Auto) (1.4-6.5) K/uL Lymph # (Auto) (1.2-3.4) K/uL [place] # (Auto) (0.11-0.59) K/uL Eos # (Auto) (0-0.5) K/uL Baso # (Auto) (0-0.2) K/uL Immature Gran # (Auto) (0.00-0.02) K/uL PT 11.0 (9.0-12.0) Seconds INR 1.0 (0.9-1.1) APTT 27.9 (21.0-31.0) Seconds PTT Ratio 1.0 POC Sodium (135-144) mmol/L Sodium 142 (136-145) mmol/L POC Potassium (3.3-5.0) mmol/L Potassium 3.9 (3.5-5.1) mmol/L POC Chloride (101-112) mmol/L Chloride 109 H (98-107) mmol/L Carbon Dioxide 28 (21-32) mmol/L POC Total CO2 (24-31) mmol/L Anion Gap 5.0 (3-11) POC Anion Gap (16-25) mmol/L POC BUN (7-18) mg/dl BUN 15 (7-18) mg/dl Creatinine 1.48 H (0.6-1.2) mg/dl POC Creatinine (0.6-1.3) mg/dl Est Cr Clr Drug Dosing 44.8 ml/min Est GFR ( Amer) 40.0 Est GFR (Non-Af Amer) 34.5 BUN/Creatinine Ratio 10.3 (10-20) Glucose 122 H (70-99) mg/dl POC Glucose (70-99) mg/dl POC Glucose (other) (70-99) mg/dl Estimat Average Glucose Hemoglobin A1c Calcium 9.3 (8.5-10.1) mg/dl POC Ioniz Calcium Wayne (1.12-1.32) mmol/l Magnesium 2.4 (1.8-2.4) mg/dl Total Bilirubin 0.7 (0.2-1) mg/dl AST 15 (15-37) U/L ALT 21 (12-78) U/L Alkaline Phosphatase 59 (45-117) U/L Troponin I 0.081 H* (0-0.045) ng/ml Total Protein 7.3 (6.4-8.2) gm/dl Albumin 3.9 (3.4-5.0) gm/dl Globulin 3.4 (2.5-4.0) gm/dl Albumin/Globulin Ratio 1.1 (0.9-2) Triglycerides (0-150) mg/dl Cholesterol (0-200) mg/dl LDL Cholesterol, Calc mg/dl VLDL Cholesterol, Calc mg/dl HDL Cholesterol mg/dl Cholesterol/HDL Ratio Hepatitis C Ab Screen Neg (Neg) 07/20/20 07/20/20 07/20/20 Range/Units Unknown 18:09 17:50 WBC 9.88 (4.8-10.8) K/uL RBC 5.00 (4.2-5.4) M/uL Hgb 15.8 (12.0-16.0) g/dL POC Hgb 15.6 (12.0-16.0) g/dl Hct 45.8 (37-47) % POC Hct 46 (37-47) % MCV 91.6 (80-100) fL MCH 31.6 (25-34) pg MCHC 34.5 (32-36) g/dL RDW Std Deviation 44.6 (36.4-46.3) fL RDW Coeff of Deb 13.6 (11.5-14.5) % Plt Count 246 (130-400) K/uL MPV 9.7 (7.4-10.4) fL Immature Gran % (Auto) 0.4 % Neut % (Auto) 80.6 % Lymph % (Auto) 13.0 % [place] % (Auto) 3.6 % Eos % (Auto) 2.0 % Baso % (Auto) 0.4 % Neut # (Auto) 7.96 H (1.4-6.5) K/uL Lymph # (Auto) 1.28 (1.2-3.4) K/uL [place] # (Auto) 0.36 (0.11-0.59) K/uL Eos # (Auto) 0.20 (0-0.5) K/uL Baso # (Auto) 0.04 (0-0.2) K/uL Immature Gran # (Auto) 0.04 H (0.00-0.02) K/uL PT (9.0-12.0) Seconds INR (0.9-1.1) APTT (21.0-31.0) Seconds PTT Ratio POC Sodium 141 (135-144) mmol/L Sodium (136-145) mmol/L POC Potassium 3.9 (3.3-5.0) mmol/L Potassium (3.5-5.1) mmol/L POC Chloride 105 (101-112) mmol/L Chloride (98-107) mmol/L Carbon Dioxide (21-32) mmol/L POC Total CO2 26 (24-31) mmol/L Anion Gap (3-11) POC Anion Gap 15.0 L (16-25) mmol/L POC BUN 16 (7-18) mg/dl BUN (7-18) mg/dl Creatinine (0.6-1.2) mg/dl POC Creatinine 1.4 H (0.6-1.3) mg/dl Est Cr Clr Drug Dosing ml/min Est GFR ( Amer) Est GFR (Non-Af Amer) BUN/Creatinine Ratio (10-20) Glucose (70-99) mg/dl POC Glucose 127 H (70-99) mg/dl POC Glucose (other) 123 H (70-99) mg/dl Estimat Average Glucose Hemoglobin A1c Calcium (8.5-10.1) mg/dl POC Ioniz Calcium [place] 1.20 (1.12-1.32) mmol/l Magnesium (1.8-2.4) mg/dl Total Bilirubin (0.2-1) mg/dl AST (15-37) U/L ALT (12-78) U/L Alkaline Phosphatase (45-117) U/L Troponin I (0-0.045) ng/ml Total Protein (6.4-8.2) gm/dl Albumin (3.4-5.0) gm/dl Globulin (2.5-4.0) gm/dl Albumin/Globulin Ratio (0.9-2) Triglycerides (0-150) mg/dl Cholesterol (0-200) mg/dl LDL Cholesterol, Calc mg/dl VLDL Cholesterol, Calc mg/dl HDL Cholesterol mg/dl Cholesterol/HDL Ratio Hepatitis C Ab Screen (Neg) Medications Administered Current Inpatient Medications Acetaminophen (Acetaminophen 325 Mg Tab) 650 mg PO Q4H PRN PRN Reason: Pain or Fever Stop: 08/19/20 21:24 Last Admin: 07/20/20 22:15 Dose: 650 mg Documented by: Allopurinol (Allopurinol 100 Mg Tab) 200 mg PO QAM TERELL Stop: 08/20/20 08:59 Amoxicillin/Clavulanate Potassium (Amoxicillin/Clavulanate 875 Mg Tab) 1 tab PO Q12H TERELL Stop: 07/31/20 07:59 Furosemide (Furosemide 20 Mg Tab) 10 mg PO QAM [facility] Stop: 08/20/20 08:59 Labetalol HCl (Labetalol Hcl Iv 5 Mg/Ml 20ml) 10 mg IV Q4H PRN PRN Reason: SBP >180 Stop: 08/19/20 21:24 Levothyroxine Sodium (Levothyroxine Sodium 112 Mcg Tablet) 112 mcg PO DAILYBB [facility] Stop: 08/20/20 06:29 Last Admin: 07/21/20 05:53 Dose: Not Given Documented by: Lisinopril (Lisinopril 20 Mg Tab) 20 mg PO DAILY [facility] Stop: 08/20/20 08:59 Miscellaneous Information (Pharmacist Discharge Med Rec Consult) 1 ea N/A UD PRN PRN Reason: Consult Stop: 08/19/20 21:24 Ondansetron HCl (Ondansetron Inj 2 Mg/Ml 2 Ml Vial) 4 mg IV Q6H PRN PRN Reason: Nausea Stop: 08/19/20 21:24 Polyethylene Glycol (Polyethylene (Miralax) 17 Gm Pack) 17 gm PO DAILY PRN PRN Reason: Constipation Stop: 08/19/20 21:24 Propranolol HCl (Propranolol Hcl La 80 Mg Capcr) 80 mg PO QAM [facility] Stop: 08/20/20 08:59 Simvastatin (Simvastatin 10 Mg Tab) 10 mg PO HS [facility] Stop: 08/19/20 20:59 Last Admin: 07/20/20 22:15 Dose: 10 mg Documented by: Vitamin D (Cholecalciferol 1,000 Units 25 Mcg Tab) 1,000 units PO QAM [facility] Stop: 08/20/20 08:59
[2020-07-21] MEDS ORDERED: POTASSIUM CHLORIDE CRTAB 20 MEQ TABCR PO STA (07:38)
[2020-07-21] MEDS: FUROSEMIDE 20 MG TAB PO SCH (08:37)
[2020-07-21] MEDS: PROPRANOLOL HCL LA 80 MG CAPCR PO SCH (08:37)
[2020-07-21] MEDS: allopurinoL 100 MG TAB PO SCH (08:37)
[2020-07-21] MEDS: CHOLECALCIFEROL 1,000 UNITS 25 MCG TAB PO SCH (08:37)
[2020-07-21] MEDS: lisinopril 20 MG TAB PO SCH (08:38)
[2020-07-21] MEDS: ACETAMINOPHEN 325 MG TAB PO PRN ×2 (08:43→16:39)
[2020-07-21] MEDS: AMOXICILLIN/CLAVULANATE 875 MG TAB PO SCH ×2 (08:56→20:43)
--- NOTE | 2020-07-21 09:53 | Electroencephalogram ---
EEG Procedure Note Date of Service July 21, 2020 Start / End Times Start Time: 704 End Time: [address] Holguin History Amnesia Home Medication List Home Medications Medication Instructions Recorded Confirmed Type allopurinol 200 mg PO QAM 07/20/20 07/20/20 History amoxicillin-pot clavulanate 1 tab PO Q12H 07/20/20 07/20/20 History [Augmentin] aspirin [Aspir-Low] 81 mg PO QAM 07/20/20 07/20/20 History cholecalciferol (vitamin D3) 25 mcg PO QAM 07/20/20 07/20/20 History [Vitamin D3] furosemide 10 mg PO QAM 07/20/20 07/20/20 History levothyroxine 112 mcg PO DAILY 07/20/20 07/20/20 History lisinopril 20 mg PO DAILY 07/20/20 07/20/20 History potassium chloride 10 meq PO QAM PRN 07/20/20 07/20/20 History propranolol 80 mg PO QAM 07/20/20 07/20/20 History simvastatin 10 mg PO HS 07/20/20 07/20/20 History Inpatient Medication List Acetaminophen (Acetaminophen 325 Mg Tab) 650 mg PO Q4H PRN PRN Reason: Pain or Fever Stop: 08/19/20 21:24 Last Admin: 07/21/20 08:43 Dose: 650 mg Documented by: [id number] Admin: 07/20/20 22:15 Dose: 650 mg Documented by: [id number] [facility] ([facility] 100 Mg Tab) [facility] [place] Stop: 08/20/20 08:59 Last Admin: 07/21/20 08:37 Dose: 200 mg Documented by: [id number] Amoxicillin/Clavulanate Potassium (Amoxicillin/Clavulanate 875 Mg Tab) 1 tab PO Q12H [facility] Stop: 07/31/20 07:59 Last Admin: 07/21/20 08:56 Dose: 1 tab Documented by: [id number] Furosemide (Furosemide 20 Mg Tab) 10 mg PO QAM [facility] Stop: 08/20/20 08:59 Last Admin: 07/21/20 08:37 Dose: 10 mg Documented by: [id number] Levothyroxine Sodium (Levothyroxine Sodium 112 Mcg Tablet) 112 mcg PO DAILYBB [facility] Stop: 08/20/20 06:29 Last Admin: 07/21/20 05:53 Dose: Not Given Documented by: [id number] Lisinopril (Lisinopril 20 Mg Tab) 20 mg PO DAILY [facility] Stop: 08/20/20 08:59 Last Admin: 07/21/20 08:38 Dose: 20 mg Documented by: [id number] Propranolol HCl (Propranolol Hcl La 80 Mg Capcr) [facility] [place] Stop: 08/20/20 08:59 Last Admin: 07/21/20 08:37 Dose: 80 mg Documented by: [id number] Simvastatin (Simvastatin 10 Mg Tab) 10 mg PO [facility] Stop: 08/19/20 20:59 Last Admin: 07/20/20 22:15 Dose: 10 mg Documented by: [id number] Vitamin D (Cholecalciferol 1,000 Units 25 Mcg Tab) 1,[facility] [place] Stop: 08/20/20 08:59 Last Admin: 07/21/20 08:37 Dose: 1,000 units Documented by: [id number] Discontinued Medications Amoxicillin/Clavulanate Potassium (Amoxicillin/Clavulanate 875 Mg Tab) 1 tab PO ONE ONE Stop: 07/20/20 23:01 Last Admin: 07/20/20 23:24 Dose: 1 tab Documented by: [id number] Nicardipine HCl 25 mg/ Sodium (Chloride) 250 mls @ 50 mls/hr IV .Q5H PRN; Protocol PRN Reason: SBP above 185 or DBP above 110 Stop: 08/19/20 17:15 Last Titration: 07/20/20 23:39 Dose: 0 mg/hr, 0 mls/hr Documented by: [id number] Admin: 07/20/20 18:11 Dose: 5 mg/hr, 50 mls/hr Documented by: [id number] Cosigned by: [id number] Magnesium Sulfate/Dextrose (Magnesium Sulfate / D5w) 1 gm in 100 mls @ 50 mls/hr IV ONE ONE Stop: 07/20/20 19:20 Last Infusion: 07/20/20 21:56 Dose: 0 mls/hr Documented by: [id number] Admin: 07/20/20 18:19 Dose: 50 mls/hr Documented by: [id number] Lorazepam (Ativan) 1 mg in 2 mls @ 2 mls/min IV NOW [facility] Stop: 07/20/20 18:50 Last Admin: 07/20/20 19:00 Dose: 2 mls/min Documented by: [id number] Thiamine HCl 500 mg/ Sodium (Chloride) 55 mls @ 208 mls/hr IV NOW STA Stop: 07/21/20 03:59 Last Infusion: 07/21/20 04:24 Dose: 0 mls/hr Documented by: [id number] Admin: 07/21/20 04:01 Dose: 208 mls/hr Documented by: [id number] Ioversol (Optiray 320 125ml) 119 ml IV ONCE ONE Stop: 07/20/20 18:26 Last Admin: 07/20/20 18:25 Dose: 119 ml Documented by: [id number] Potassium Chloride (Potassium Chloride 20 Meq Tabcr) 20 meq PO NOW STA Stop: 07/21/20 07:39 Last Admin: 07/21/20 08:56 Dose: 20 meq Documented by: [id number] Description This is a 21 electrode EEG with a single channel dedicated to limited EKG. The electrodes were placed in accordance with the International 10-20 system. This EEG was performed as a bedside recording is good technical quality with few muscle movement artifact but by large is quite interpretable. Photic stimulation was performed. Drowsiness and light sleep not recorded. During wakefulness there is evidence for a background alpha rhythm of up to 11 Hz maximal frequency of up to 20 V maximum amplitude which is symmetrical in maximum and posterior head regions. Theta activity of modest voltage is seen in symmetrical fashion with central regions. Beta activity seen bifrontally Photic stimulation provokes no important changes At no time is evidence for potentially epileptogenic activity Interpretation Normal EEG during wakefulness Clinical Correlation This EEG is normal and reveals no evidence for focal generalized encephalopathy or evidence for potentially epileptogenic activity Magdiel Maria MD
[2020-07-21 11:02] LABS: Estimated Average Glucose 85 mg/dl; Hemoglobin A1C 4.6 % (4.5-5.6)
--- NOTE | 2020-07-21 14:14 | Electrocardiogram Report ---
Test Reason : Blood Pressure : / mmHG Vent. Rate : 072 BPM Atrial Rate : 072 BPM P-R Int : 176 ms QRS Dur : 076 ms QT Int : 402 ms P-R-T Axes : 054 -21 043 degrees QTc Int : 440 ms Poor data quality, interpretation may be adversely affected Normal sinus rhythm Moderate voltage criteria for LVH, may be normal variant Poor R wave progression, consider anterior NM vs. lead placement vs. LVH Borderline ECG No previous ECGs available Confirmed by Saud Steward ([id number]) on 07/21/2020 2:14:11 PM Referred By: REFERRED SELF Confirmed By:Bony Steward
--- NOTE | 2020-07-21 15:09 | Neurology Consultation ---
Date of Consultation July 21, 2020 Assessment & Plan (1) Transient global amnesia: 1. TGA is a diagnosis of exclusion- stress is a factor 2. MRI and CTA head and neck- r/o stroke 3. EEG-normal no seizure focus 4. TTE- no ASD 5. improving over a 24 hour period- verifies improvement 6. optimize HTN, HLD, DM LDL <70 7. would continue low dose aspirin 81 mg as pre hospital dosing 8. follow up with ENT for removal of Rhino plug and continue Augmentin 9. follow up with neurology in 4-6 weeks Starr WOOD Present on Admission?: Yes (2) HTN (hypertension): 1. optimize control - follow up with PCP Present on Admission?: Yes (3) Epistaxis: 1. follow up scheduled for Dr Rodriguez, ENT - Sunday 2. continue Augmentin as prescribed. Present on Admission?: Yes Supervising Physician Co-Signing Physician Notes I have seen and discussed above patient with Dr Starr Trevino, neurology Pt seen and examined. Hx sounds cw TGA, less likely hypertensive encepahlopathy. PT Father has nosebleeds but nothing in their hx suggests HHT. Pt should see us in fu post dc. LAXMI Trevino MD History of Present Illness Reason for Consultation: stroke alert Requesting Physician: Ricky Mi MD Attending Physician: Ricky Mi MD History of Present Illness Angélica is a 74 year old female with a PMH- HLD, hypothyroidism, prediabetes, hyperparathyroidism, pulmonary nodules, HTN, morbid obesity, CKD III, OA, lymphedema LE, thyroidectomy. She lives in [place] with her . She was brought by EMS this am for significant nose bleed which had been occurring at home for about 2 hours. She was folding clothes and she ran for the [employer] can with a significant nose bleed. They tried to stop it but was unable to get it under control. then called the EMS and they took her to the ED and a rhino plug was placed she was stable and then sent her home on Augmentin. Once she was home her handed her a package she had ordered in the mail she opened it and didn't recognize what she had ordered. She also couldn't remember the trip to the ED or any details of the day. Her was concerned that she may have had a stroke and brought her back and a stroke alert was called. She had a CTA head and neck and MRI brain which were unremarkable. She had no weakness, but was unable to answer orientation questions and was repeating herself. Her blood pressure was elevated to 220/120. She has no history of memory issues, seizures, dementia. is in the room states the time he noticed the confusion was around 1500 on 07/20. She started to remember and be more oriented last night when she woke at 0400 she remember bits and pieces of the prior events. She has had nose bleeds all her life but they were always managed by pressure and lying down. 2 weeks ago she had a nose bleed the wasn't under control for about [address] Rodriguez, ENT (he did a thyroidectomy on her in the past) and he is going to see her Sunday and recommended continuing the Augmentin until then. denies CP, SOB, abdominal pain, one sided weakness, numbness tingling, N,V, new bowel or bladder symptoms, falls, head trauma. Allergies Allergy/AdvReac Type Severity Reaction Status Date / Time adivl AdvReac Mild hematuria Uncoded 07/20/20 13:58 Home Medications Home Medications Medication Instructions Recorded Confirmed Type allopurinol 200 mg PO QAM 07/20/20 07/20/20 History amoxicillin-pot clavulanate 1 tab PO Q12H 07/20/20 07/20/20 History [Augmentin] aspirin [Aspir-Low] 81 mg PO QAM 07/20/20 07/20/20 History cholecalciferol (vitamin D3) 25 mcg PO QAM 07/20/20 07/20/20 History [Vitamin D3] furosemide 10 mg PO QAM 07/20/20 07/20/20 History levothyroxine 112 mcg PO DAILY 07/20/20 07/20/20 History lisinopril 20 mg PO DAILY 07/20/20 07/20/20 History potassium chloride 10 meq PO QAM PRN 07/20/20 07/20/20 History propranolol 80 mg PO QAM 07/20/20 07/20/20 History simvastatin 10 mg PO HS 07/20/20 07/20/20 History Patient History Medical History (Updated 07/21/20 @ 15:42 by Starr L Lavon, PA-C) CKD (chronic kidney disease), stage III HLD (hyperlipidemia) HTN (hypertension) Hypothyroidism Prediabetes Surgical History (Updated 07/20/20 @ 20:31 by Triny Sagastume PA-C) H/O thyroidectomy H/O: hysterectomy Family History (Updated 07/20/20 @ 20:32 by Triny Sagastume PA-C) Other Ovarian cancer Social History (Updated 07/20/20 @ 20:32 by Triny Sagastume PA-C) Smoking Status: Never smoker Hx Alcohol Use: No Hx Substance Use: No Preferred Language: Ukrainian Communication Ability: Effective Beliefs That Will Affect Care: None Current Living Situation: Spouse Other Information That Helps Us Care for You: No Feels Safe at Home: Yes Safety Concerns: Feels Safe At This Time Assistive Devices: Glasses Physical Exam Physical Exam: Physical Exam: Constitutional: appearance over nourished, healthy and normal Ears, Nose, Mouth and Throat: Rhino nasal plug in place Cardiovascular: normal S-1 and S-2 and regular rate and rhythm Respiratory: clear to auscultation (CTA) Musculoskeletal: mild peripheral edema and distant distal pulses Skin: no stigmata of neurocutaneous disease noted and normal and intact Eyes: extraocular muscles intact (EOMI) and pupils equal, round and reactive to light (PERRL) NEUROLOGIC EXAMINATION: Mental status: Alert and interactive Oriented to [facility], , voted, 2019, recognizes son, and address, another child is daughter and name Oriented to person Speech fluent with no evidence of aphasia Cranial Nerves smile eye brow raise symmetric Reflexes: Deep tendon reflexes were symmetrical and graded 2/5. Sensory: light cool intact, GT proprioception intact bilaterally Coordination: finger to nose heel to estrada intact bilaterally Gait/Stance: Posture sitting up in bed, gait not assessed Motor: Negative for pronator drift of out stretched arms with eyes closed. Strength: hand aircraft stress analyst biceps triceps 5/5 bilaterally, hip flex plantar flex ext intact. Results & Data ([facility]) Vital Signs (Past 12 Hours) Vital Signs Temp Pulse Pulse Resp BP Pulse Ox 07/21/20 14:49 60 07/21/20 11:37 36.5 C 67 18 147/77 H 92 07/21/20 08:22 36.5 C 76 19 145/72 H 92 07/21/20 08:00 73 07/21/20 04:22 36.4 C L 74 18 174/79 H 92 Laboratory Results Abnormal lab results 07/20/20 07/20/20 07/20/20 Range/Units 17:50 18:09 Unknown Neut # (Auto) 7.96 H (1.4-6.5) K/uL Immature Gran # (Auto) 0.04 H (0.00-0.02) K/uL Chloride (98-107) mmol/L POC Anion Gap 15.0 L (16-25) mmol/L Creatinine (0.6-1.2) mg/dl POC Creatinine 1.4 H (0.6-1.3) mg/dl Glucose (70-99) mg/dl POC Glucose 127 H (70-99) mg/dl POC Glucose (other) 123 H (70-99) mg/dl Troponin I (0-0.045) ng/ml 07/20/20 07/21/20 Range/Units Unknown 06:18 Neut # (Auto) (1.4-6.5) K/uL Immature Gran # (Auto) (0.00-0.02) K/uL Chloride 109 H 108 H (98-107) mmol/L POC Anion Gap (16-25) mmol/L Creatinine 1.48 H 1.31 H (0.6-1.2) mg/dl POC Creatinine (0.6-1.3) mg/dl Glucose 122 H 100 H (70-99) mg/dl POC Glucose (70-99) mg/dl POC Glucose (other) (70-99) mg/dl Troponin I 0.081 H* (0-0.045) ng/ml Diagnostic Findings This EEG is normal and reveals no evidence for focal generalized encephalopathy or evidence for potentially epileptogenic activity CTA head and neck here is no hemorrhage, mass effect, or evidence of acute territorial ischemia by CT criteria noting angiographic phase technique. U nremarkable CT angiogram of the brain. Unremarkable CT angiogram of the neck. MRI brain - no acute abnormalities TTE- 55-60% EF no ASD
[2020-07-21] MEDS: SIMVASTATIN 10 MG TAB PO SCH (20:43)
[2020-07-21] MEDS ORDERED: traMADol HCL 50 MG TABLET PO PRN (22:34)
[2020-07-22] MEDS: LEVOTHYROXINE SODIUM 112 MCG TABLET PO SCH (06:17)
[2020-07-22 06:18] LABS: Hematocrit (blood only) 42.2 % (37-47); Hemoglobin 14.4 g/dL (12.0-16.0); Mean Corpuscular Hemoglobin 31.5 pg (25-34); Mean Corpuscular Hgb Conc 34.1 g/dL (32-36); Mean Corpuscular Volume 92.3 fL (80-100); Mean Platelet Volume 9.8 fL (7.4-10.4); Platelet Count 226 K/uL (130-400); RDW Coefficient of Variation 13.6 % (11.5-14.5); Red Blood Count 4.57 M/uL (4.2-5.4); White Blood Count 9.06 K/uL (4.8-10.8)
[2020-07-22 06:49] LABS: BUN Creatinine Ratio 11.9 (10-20); Calcium 9.4 mg/dl (8.5-10.1); Creatinine Clr Calc Pharmacy 46.4 ml/min; Est GFR (African American) 42.1; Est GFR (Non-African American) 36.3; Potassium 3.9 mmol/L (3.5-5.1)
[2020-07-22] MEDS: lisinopril 20 MG TAB PO SCH (08:05)
[2020-07-22] MEDS: allopurinoL 100 MG TAB PO SCH (08:05)
[2020-07-22] MEDS: AMOXICILLIN/CLAVULANATE 875 MG TAB PO SCH (08:05)
[2020-07-22] MEDS: CHOLECALCIFEROL 1,000 UNITS 25 MCG TAB PO SCH (08:05)
[2020-07-22] MEDS: FUROSEMIDE 20 MG TAB PO SCH (08:05)
[2020-07-22] MEDS: PROPRANOLOL HCL LA 80 MG CAPCR PO SCH (08:05)
--- NOTE | 2020-07-22 08:11 | Hospitalist Progress Note ---
Date of Service July 22, 2020 Assessment & Plan (1) Transient global amnesia: 74 y/o F who came to the ER in the morning with a nosebleed, went home and was confused, is not remembering what happened and came back to the hospital and was found to be hypertensive, blood pressure was elevated and workup is negative so far. 1. Confusion, probably transient global amnesia, could not remember events of prior to admission properly. Now doing better, pieces are coming back together. Most likely stress related. Patient does report significant stress during her epistaxis episode and also pain during nasal packing. Imaging studies, stroke workup negative. CT head, CTA head, neck, MRI brain - negative for stroke or any acute event When she came in, blood pressure was high. Then under control with nicardipine drip. Now BP under control on her home medication. Likely related due to pain. Received IV thiamine 500 mg on admission. EEG - unremarkable Full stroke workup with echo, PT/OT and neuro consult, closely monitor in the tele floor. Tele reviewed - pt in sinus rhythm Neurology recommendations - Hx sounds cw TGA, less likely hypertensive encephalopathy. Recommend to restart ASA 81 mg daily Optimize HTN, HLD, DM LDL <70, follow up with PCP Follow up with neurology in 4-6 weeks, Starr Doll PAC Held aspirin on admission as patient had significant nosebleed. Continue statin. Follow lipid profile. 2. Hypertensive urgency/emergency. Her confusion could be also from elevated blood pressure. Under control with nicardipine drip. Continue her home lisinopril and propranolol. IV labetalol p.r.n., and closely monitor in the tele floor. BP elevated likely due to pain and stress. Currently BP under control on home meds. 3. Epistaxis, has a Rhino pack in the left nostril. Currently under control. Held aspirin on admission. Augmentin prescribed by the ER. Pt has appointment scheduled with Dr. Rodriguez, ENT, for Sunday - recommended to cont. packing and Augmentin until then 4. History of prediabetes, follow diabetic diet. Follow the HbA1c levels. 5. Hypothyroidism, post-surgical. Continue Synthroid. 6. Hyperlipidemia. Continue statin. Follow lipid profile. 7. Morbid obesity, needs counseling. 8. Lymphedema in both legs. Continue home Lasix. We will monitor. 9. Chronic kidney disease stage III, baseline creatinine around 1.6 current creatinine of 1.4. 10. Mild elevation of troponin, demand ischemia in the setting of CKD. Echocardiogram unremarkable. DVT prophylaxis: SCDs Admission and Anticipated Discharge Date Admission Date: July 20, 2020 Subjective Patient is lying in bed, in no acute distress. Denies any fevers, chills, chest pain, shortness of breath, headache, dizziness. She still cannot remember the full events of day of admission however she says that pieces are coming back to her. She does report significant stress, during her epistaxis episode, and pain during nasal packing. Discussed recommendations from neurology, as well as her upcoming appointment with ENT on Sunday. Review of Systems Review of Systems: All systems reviewed & are unremarkable except as noted in HPI & below Constitutional: no fever and no chills Respiratory: no cough and no dyspnea Cardiovascular: no chest pain and no palpitations Gastrointestinal: no abdominal pain, no nausea and no vomiting Neurologic: no localized weakness, no dizziness, no headache(s) and no confusion Physical Exam Physical Exam: GENERAL: obese female laying in bed, not in acute distress HEENT: Pupils equal, round, and reactive to light. Oral mucosa moist. Nose: left Rhino nose packing present NECK: Supple. No neck masses seen. CARDIOVASCULAR: S1, S2 heard, regular rate and rhythm, no murmur, no gallop. RESPIRATORY SYSTEM: Normal AP diameter. No accessory muscle use. No wheezing, no crackles. ABDOMEN: Soft, bowel sounds present, nontender. No distention. CENTRAL NERVOUS SYSTEM: Alert and oriented x2. Speech clear. No facial droop. Power is 5/5 in all extremities. Sensation is intact, position sense intact. Coordination of movements normal. No pronator drift. able lift her lower extremity and hold for a few seconds. EXTREMITIES: Bilateral lower extremity edema present, no erythema seen SKIN: warm, dry Results & Data Results & Data ([facility]) Vital Signs (Past 12 Hours) Vital Signs Temp Pulse Pulse Pulse Resp BP Pulse Ox 07/22/20 07:29 89 07/22/20 07:17 36.6 C 66 18 154/80 H 94 07/22/20 04:09 165/73 H 07/22/20 04:08 37 C 70 16 191/87 H 92 07/22/20 00:10 36.8 C 77 18 160/81 H 95 07/21/20 23:00 64
[2020-07-22] MEDS ORDERED: STROKE PATIENT DISCHARGE PRN (08:51)
--- NOTE | 2020-07-22 08:52 | Discharge Summary ---
Date of Service July 22, 2020 Admission HPI Per Admitting Provider This 74-year-old female with past medical history significant for hyperlipidemia, hypothyroidism, prediabetes, hyperparathyroidism, pulmonary nodules, hypertension, morbid obesity, chronic kidney disease stage III, osteoarthritis, lymphedema of both lower extremities, history of thyroidectomy. The patient lives with her . The patient was seen here in the morning in the hospital with a left nosebleed. She has a nose pack, Rhino pack done by the ER physician and was discharged back home. The bleeding has stopped, the took her home, when she was at home she could not remember anything that she was in the ER for nosebleed. She can recognize her , but she did not know the date. She seemed confused, was worried about a stroke and he brought the patient back to the hospital. The patient has stroke workup with CTA of the head and neck and also brain MRI, which are unremarkable. The patient is currently alert and awake, oriented to name and place, but somewhat difficulty with dates, could subtract 100 from 7 only one time, able to recognize her . Speech is clear. No facial droop. Otherwise, insight is okay. She could able to answer all the questions. The only thing she does not remember is what happened today. Currently has some headache. No blurred visions. No earache, has some stuffy nose, no sore throat, no cough, no chest pain, no shortness of breath, no nausea, no vomiting, no abdominal pain. Normal bowel and bladder movements. Has chronic edema in lower extremities. She takes Lasix once daily and if she takes extra Lasix she takes it with potassium supplement. Currently afebrile. Blood pressure when she came in was high like 220/120 and patient says whenever she gets nervous and anxious her blood pressure goes high and today she was anxious with all this these things happening .. She says she usually checks her blood pressures at home, but recently they did not checked it. In the ER, she was started on nicardipine drip and blood pressure came into 170s, and currently 140/74. Admission Exam Per Admitting Provider GENERAL: The patient is obese, not in acute distress. VITAL SIGNS: Temperature 36.4, pulse 76, respiratory rate 20, blood pressure when she came was like 220/120, currently 140/74, oxygen 94% on room air. HEENT: Pupils equal, round, and reactive to light. Oral mucosa moist. Nose, left Rhino nose packing was seen. . NECK: Supple. No neck masses seen. CARDIOVASCULAR: S1, S2 heard, regular rate and rhythm, no murmur, no gallop. RESPIRATORY SYSTEM: Normal AP diameter. No accessory muscle use. No wheezing, no crackles. ABDOMEN: Soft, bowel sounds present, nontender. No distention. CENTRAL NERVOUS SYSTEM: Alert and oriented x2. Speech clear. No facial droop. Power is 5/5 in all extremities. Sensation is intact, position sense intact. Coordination of movements normal. No pronator drift. able lift her lower extremity and hold for a few seconds. EXTREMITIES: Bilateral lower extremity edema present, no erythema seen. Principal Diagnosis Transient global amnesia Epistaxis Hypertension Discharge Exam GENERAL: obese female laying in bed, not in acute distress HEENT: Pupils equal, round, and reactive to light. Oral mucosa moist. Nose: left Rhino nose packing present NECK: Supple. No neck masses seen. CARDIOVASCULAR: S1, S2 heard, regular rate and rhythm, no murmur, no gallop. RESPIRATORY SYSTEM: Normal AP diameter. No accessory muscle use. No wheezing, no crackles. ABDOMEN: Soft, bowel sounds present, nontender. No distention. CENTRAL NERVOUS SYSTEM: Alert and oriented x2. Speech clear. No facial droop. Power is 5/5 in all extremities. Sensation is intact, position sense intact. Coordination of movements normal. No pronator drift. able lift her lower extremity and hold for a few seconds. EXTREMITIES: Bilateral lower extremity edema present, no erythema seen SKIN: warm, dry Discharge Data Allergies Allergy/AdvReac Type Severity Reaction Status Date / Time adivl AdvReac Mild hematuria Uncoded 07/20/20 13:58 Consultations 07/20/20 19:12 ED Decision to Admit Stat 07/20/20 21:25 Consult Case Management - Discharge Planning Routine Consult Neurology Routine Ordered Studies 07/20/20 17:15 CT angio head w con Stat CT angio neck with con Stat IMPRESSION: 1. There is no hemorrhage, mass effect, or evidence of acute territorial ischemia by CT criteria noting angiographic phase technique. 2. Unremarkable CT angiogram of the brain. 3. Unremarkable CT angiogram of the neck. CT head/brain wo con Stat IMPRESSION: There is no hemorrhage, mass effect, or evidence of acute territorial ischemia by CT criteria. 07/20/20 18:22 MR brain wo con Stat IMPRESSION: No acute intracranial abnormality is identified noting a motion degraded examination. Hospital Course (1) Transient global amnesia: 74 y/o F who came to the ER in the morning with a nosebleed, went home and was confused, is not remembering what happened and came back to the hospital and was found to be hypertensive, blood pressure was elevated and workup is negative so far. 1. Confusion, probably transient global amnesia, could not remember events of prior to admission properly. Now doing better, pieces are coming back together. Most likely stress related. Patient does report significant stress during her epistaxis episode and also pain during nasal packing. Imaging studies, stroke workup negative. CT head, CTA head, neck, MRI brain - negative for stroke or any acute event When she came in, blood pressure was high. Then under control with nicardipine drip. Now BP under control on her home medication. Likely related due to pain. Received IV thiamine 500 mg on admission. EEG - unremarkable Full stroke workup with echo, PT/OT and neuro consult, closely monitor in the tele floor. Tele reviewed - pt in sinus rhythm Neurology recommendations - Hx sounds cw TGA, less likely hypertensive encephalopathy. Recommend to restart ASA 81 mg daily Optimize HTN, HLD, DM LDL <70, follow up with PCP Follow up with neurology in 4-6 weeks, Starr Doll PAC Held aspirin on admission as patient had significant nosebleed. Continue statin. Follow lipid profile. 2. Hypertensive urgency/emergency. Her confusion could be also from elevated blood pressure. Under control with nicardipine drip. Continue her home lisinopril and propranolol. IV labetalol p.r.n., and closely monitor in the tele floor. BP elevated likely due to pain and stress. Currently BP under control on home meds. 3. Epistaxis, has a Rhino pack in the left nostril. Currently under control. Held aspirin on admission. Augmentin prescribed by the ER. Pt has appointment scheduled with Dr. Rodriguez, ENT, for Sunday - recommended to cont. packing and Augmentin until then 4. History of prediabetes, follow diabetic diet. Follow the HbA1c levels. 5. Hypothyroidism, post-surgical. Continue Synthroid. 6. Hyperlipidemia. Continue statin. Follow lipid profile. 7. Morbid obesity, needs counseling. 8. Lymphedema in both legs. Continue home Lasix. We will monitor. 9. Chronic kidney disease stage III, baseline creatinine around 1.6 current creatinine of 1.4. 10. Mild elevation of troponin, demand ischemia in the setting of CKD. Echocardiogram unremarkable. DVT prophylaxis: SCDs Total Time Total Time Spent Total Time Spent (In Minutes): 40 Total Time Includes: Examination of the Patient, Discharge Planning, Medication Reconciliation and Communication With Other Providers Discharge Plan Discharge Items Patient Disposition: Home - Self-Care Reason For Visit: STROKE EVAL Discharge Diagnosis: Transient global amnesia Epistaxis Hypertension Activity: Per Instructions section Non-emergency contact: Primary Care Provider and Neurologist Call non-emergency contact if: you have any medication questions and your symptoms worsen Follow-up/Referrals: Piper Arnold MD [Primary Care Provider] - (Date & Time 07/26/2020 11:00 AM Provider Piper Arnold MD Department General Internal Medicine [facility] ) Diet: Heart Healthy Addtl Attending Provider Instructions: Follow-up with primary care doctor, appointment was scheduled for you for for 07/26. You also need to follow-up with neurologist, in 4 to 6 weeks. You will be contacted about the appointment. Please make sure to follow-up with your ENT doctor, as scheduled for Sunday. Take Augmentin twice a day, as prescribed. Addtl Court Stenographer Provider Instructions: Risk Factors for Stroke: You can reduce your chances of stroke by working with your medical provider to adopt a healthy lifestyle. Some specific ways to lower your chance of stroke are: * If you are a smoker, now is the time to stop smoking cigarettes * If you are diabetic, improve the control of your blood sugars * Avoid excessive amounts of alcohol * Control high blood pressure * Lose weight if you are overweight * Be sure to lead an active lifestyle * Eat a healthy diet low in salt, cholesterol and fat You should know about other risk factors for stroke that you are unable to control. These include: * Age 55 years or older * Male gender * Certain racial groups: , or / * Family History of Stroke, Mini stroke or Heart Attack * Sickle Cell Disease Follow Up: It is important for you to keep your follow up appointments with your medical provider. Who to Call and When: Medical Emergencies: Call 911 immediately if you experience any of the following warning signs and symptoms of Stroke: * Sudden numbness or weakness of the face, arm or leg, especially on one side of the body * Sudden confusion, trouble speaking or understanding * Sudden trouble seeing in one or both eyes * Sudden trouble walking, dizziness, loss of balance or coordination * Sudden severe headache with no cause Do not delay calling 911 if you experience any warning signs or symptoms of a stroke. Delay in seeking medical attention may affect what treatments can be given to you. . Pending Studies at Discharge: No Stand-Alone Forms: [facility], Smoking Cessation Medications and DC Order Prescriptions: Continued simvastatin 10 mg tablet 10 mg PO HS RF: 0 potassium chloride 10 mEq tablet extended release 10 meq PO QAM PRN (Reason: Edema) RF: 0 allopurinol 100 mg tablet 200 mg PO QAM RF: 0 aspirin 81 mg Tablet,Delayed Release (Dr/Ec) 81 mg PO QAM RF: 0 propranolol 80 mg capsule,extended release 24 hr 80 mg PO QAM RF: 0 furosemide 20 mg tablet 10 mg PO QAM RF: 0 cholecalciferol (vitamin D3) [Vitamin D3] 25 mcg (1,000 unit) Tablet 25 mcg PO QAM RF: 0 levothyroxine 112 mcg tablet 112 mcg PO DAILY RF: 0 lisinopril 20 mg tablet 20 mg PO DAILY RF: 0 amoxicillin-pot clavulanate [Augmentin] 875-125 mg Tablet 1 tab PO Q12H 4 Days Qty: 8 RF: 0 Discharge Orders: Discharge Order (Routine); Ordered 07/22/20 Ordered By: Ricky Mi Admission Data Admit Date/Time: 07/20/20 20:29 Attending Provider: Ricky Mi Admit Provider: Isidro Escobar Primary Care Provider: Piper Arnold Other Providers: Isidro Escobar ; Starr Trevino
== END 2020-07-22 10:21 | disposition home or self-care (01) | DRG 71 ==
LOC: ED 16:51 → 2E 20:29 → SUATTDRO 20:29 → 2E 21:00